=== PATIENT | male | born 1940 | race Asian ===

== ENCOUNTER 2019-04-26 10:34 | Emergency (ER) | payer SELFPAY ==
[~2019-04-26] VITALS: Ht 157.5 cm; Wt 54.5 kg
[~2019-04-26 10:34] MED LIST: ATOR20TA86 PO; NOCURR
[2019-04-26] MEDS ORDERED: PERTUSS(ACELL),DIPH,TET VAC/PF 0.5 ML VIAL IM ONE (12:00)
[2019-04-26] MEDS ORDERED: ACETAMINOPHEN 325 MG TABLET PO ONE (12:00)
[2019-04-26 12:32] LABS: BASOPHILS % (AUTO) 1.4 % (0.0-2.0); EOSINOPHILS % (AUTO) 4.7 % (1.0-6.0); HEMATOCRIT 43.6 % (41-53); HEMOGLOBIN 14.2 g/dL (13.5-17.5); LYMPHOCYTES # (AUTO) 2.4 K/uL (1.0-4.8); LYMPHOCYTES % (AUTO) 31.6 % (22.0-44.0); MEAN CORPUSCULAR HEMOGLOBIN 28.5 pg (26.0-34.0); MEAN CORPUSCULAR HGB CONC 32.6 G/dL (31.0-37.0); MEAN CORPUSCULAR VOLUME 87 fL (80-100); MONOCYTES # (AUTO) 0.8 K/uL (0.1-1.0); MONOCYTES % (AUTO) 10.8 % (2.0-9.0); NEUTROPHILS # (AUTO) 3.9 K/uL (1.8-7.7); NEUTROPHILS % (AUTO) 51.5 % (40.0-70.0); PLATELET COUNT (AUTO) 346 K/uL (150-450); RED BLOOD CELL COUNT(AUTO) 4.99 MIL/uL (4.50-5.90); RED CELL DISTRIBUTION WIDTH 14.1 % (11.5-14.5)
[2019-04-26 12:54] LABS: ANION GAP 13 mmol/L (8-16); CALCIUM, TOTAL 8.9 mg/dL (8.8-10.5); CARBON DIOXIDE 25 mmol/L (22-29); CHLORIDE 104 mmol/L (98-107); CREATININE 0.99 mg/dL (0.60-1.30); GLUCOSE,RANDOM 102 mg/dL (70-110); POTASSIUM 3.8 mmol/L (3.5-5.1); SODIUM SERUM 142 mmol/L (136-145); UREA NITROGEN, BLOOD 10 mg/dL (7-18)
[2019-04-26 12:56] LABS: GLOMERULAR FILTR. RATE CALC > 60 mL/min (>60)
[2019-04-26 12:58] LABS: B-TYPE NATRIURETIC PEPTIDE 12 pg/mL (0-100)
[2019-04-26 13:18] VITALS: BP 179/99
== END 2019-04-26 13:31 | disposition home or self-care (01) ==
LOC: EMS 10:34
DX: S01.411A Laceration without foreign body of right cheek and temporomandibular area, initial encounter (principal); R55 Syncope and collapse; I10 Essential (primary) hypertension; X58.XXXA Exposure to other specified factors, initial encounter; Y93.89 Activity, other specified; Y92.89 Other specified places as the place of occurrence of the external cause; Y99.8 Other external cause status
CPT/HCPCS: 70450; 90471; 90715; 93005

== ENCOUNTER 2025-05-26 03:14 | Emergency (ER) | payer MEDICARE ==
[~2025-05-26] VITALS: Ht 157.5 cm; Wt 50.0 kg
[2025-05-26 03:33] VITALS: TEMP 97.605248
[2025-05-26 05:25] VITALS: BP 142/74; PULSE 65; RESP 20; O2SAT 95
== END 2025-05-26 06:00 | disposition home or self-care (01) ==
LOC: EMS 03:17
DX: S01.81XA Laceration without foreign body of other part of head, initial encounter (principal); G40.909 Epilepsy, unspecified, not intractable, without status epilepticus; R55 Syncope and collapse; W19.XXXA Unspecified fall, initial encounter; Y93.89 Activity, other specified; Y92.89 Other specified places as the place of occurrence of the external cause; Y99.8 Other external cause status
CPT/HCPCS: 12011; 93005; 99283